=== PATIENT | male | born 1980 | race Asian ===

== ENCOUNTER 2022-03-01 22:14 | Emergency (ER) | payer OTHER ==
[~2022-03-01] VITALS: Ht 172.7 cm; Wt 81.8 kg
[~2022-03-01 22:14] MED LIST: LISI10TA24 PO
[2022-03-01 22:36] VITALS: BP 168/112
[2022-03-01] MEDS ORDERED: PENI500T2 PO (23:14)
[2022-03-01] MEDS ORDERED: OxyCODONE HCL/ACETAMINOPHEN 5-325 MG TABLET PO ONE (23:15)
[2022-03-01] MEDS ORDERED: IBUP-2070 PO (23:15)
[2022-03-01] MEDS ORDERED: IBUPROFEN 600 MG TABLET PO ONE (23:15)
[2022-03-01] MEDS ORDERED: PENICILLIN V POTASSIUM 500 MG TABLET PO ONE (23:15)
== END 2022-03-01 23:31 | disposition home or self-care (01) ==
LOC: EMS 22:23
DX: K02.9 Dental caries, unspecified (principal); K08.89 Other specified disorders of teeth and supporting structures; I10 Essential (primary) hypertension; F41.9 Anxiety disorder, unspecified; F17.210 Nicotine dependence, cigarettes, uncomplicated
CPT/HCPCS: 99283